=== PATIENT | female | born 1965 | race Caucasian/White ===

== ENCOUNTER 2021-03-02 14:03 | Outpatient (CLI) | payer OTHER | END 2021-03-02 14:04 | disposition home or self-care (01) | LOC: LAB 14:03 | PROVIDERS: ATTEND Naturopath | DX: Z53.9 Procedure and treatment not carried out, unspecified reason (principal); B37.9 Candidiasis, unspecified; R53.83 Other fatigue | CPT/HCPCS: 80053; 81599; 85025 ==